=== PATIENT | female | born 1980 | race Caucasian/White ===

== ENCOUNTER 2017-06-27 21:51 | Emergency (ER) | payer MEDICAID, OTHER ==
--- NOTE | 2017-06-27 23:37 | ERNOTE ---
Integumentary HPI - General Presenting Symptoms: rash Time Seen by Provider: 06/27/17 23:17 Source: patient Exam Limitations: no limitations - Immun/Allergies/Home Medications Immunizations: IMMUNIZATION HX Immunizations Up to Date No History of Influenza Vaccine No Hx Pneumococcal Vaccination No Allergies/Adverse Reactions: Allergies Allergy/AdvReac Type Severity Reaction Status Date / Time cefaclor [From Ceclor] Allergy Verified 06/27/17 22:06 Home Medications: HOME MEDICATIONS Methylprednisolone [Medrol Dosepak] 4 mg PO DAILY #21 tab.ds.pk 06/28/17 [Last Taken Unknown] - History of Present Illness Narrative: pt had onset of rash 3 days ago mostly on abdomen but also minimally on hands and beginning to spread to legs Location: Reports: torso, hands Quality: Reports: itching, painful Severity: moderate Exposure: Reports: no cause identified Modifying Factors - (Improves): Denies: antihistamine Review of Systems - Review of Systems Constitutional: Absent: recent illness EYE: Present: no symptoms reported ENT: Present: no symptoms reported Respiratory: Absent: cough, wheezing Cardiology: Present: no symptoms reported Gastrointestinal/Abdominal: Absent: nausea, vomiting, diarrhea Genitourinary: Present: no symptoms reported Musculoskeletal: Absent: joint pain, joint swelling Skin: Present: See HPI Neurological: Present: no symptoms reported Endocrine: Absent: excessive sweating, flushing Hematologic/Lymphatic: Absent: easy bruising, easy bleeding Psych: Present: no symptoms reported - Patient's Past Medical History Patient History - Medical: No pertinent hx Patient History - Cardiac/Respiratory: No pertinent hx Patient History - Cancer: No Hx of Cancer Patient History - Surgical Procedures: Cholecystectomy, T & A, Orthopedic Patient History - Other: None LMP (females 10-50): 3 weeks - Social History Living Situations: home Abuse History: No History of abuse Psych History: No pertinent hx Smoking Status: Never smoker Have you smoked in the past 12 months: No Do you dip or chew tobacco: No Alcohol Use: none Drug Use: none - Immunizations Immunizations Up to Date: No Hx Pneumococcal Vaccination: No History of Influenza Vaccine: No Physical Exam - Physical Exam General Appearance: Present: wd/wn, alert, no apparent distress Head Exam: Present: normal inspection, no evidence of injury Respiratory: Present: no respiratory distress, no accessory muscle use Extremity Exam: Present: normal range of motion, no edema Neurological Exam: Present: alert, oriented, normal mood/affect, no motor/ sensory deficits Skin Exam: Present: other - small scattered erythematous papules on abdomen and a few on her dorsal hands and between a few fingers ED Progress - Vital Signs Vital Signs: Vital Signs 06/27/17 06/27/17 22:06 23:08 Temperature 36.6 C Pulse Rate 90 90 Respiratory 16 16 Rate Blood Pressure 138/94 109/74 O2 Sat by Pulse 98 97 Oximetry - Progress/Reassessment Chief Complaint: Rash Departure Clinical Impression: Contact dermatitis and eczema due to cause Qualifiers: Contact dermatitis type: unspecified Contact dermatitis trigger: unspecified trigger Qualified Code(s): L25.9 - Unspecified contact dermatitis, unspecified cause - Departure Disposition: Home self-care Condition: Good Instructions: Contact Dermatitis, [id number] Prescriptions: Methylprednisolone [Medrol Dosepak] 4 mg PO DAILY #21 tab.ds.pk
[2017-06-28 01:07] VITALS: BP 117/80
== END 2017-06-28 00:42 | disposition home or self-care (01) ==
LOC: ER 21:51
DX: L25.9 Unspecified contact dermatitis, unspecified cause (principal)

== ENCOUNTER 2017-08-09 22:23 | Emergency (ER) | payer OTHER ==
--- NOTE | 2017-08-09 23:33 | ERNOTE ---
Integumentary HPI - General Presenting Symptoms: rash Time Seen by Provider: 08/09/17 22:56 Source: patient Exam Limitations: no limitations - Immun/Allergies/Home Medications Immunizations: IMMUNIZATION HX Immunizations Up to Date Yes History of Influenza Vaccine No Hx Pneumococcal Vaccination No Allergies/Adverse Reactions: Allergies Allergy/AdvReac Type Severity Reaction Status Date / Time cefaclor [From [facility]] Allergy Verified 06/27/17 22:06 Home Medications: HOME MEDICATIONS Permethrin [Elimite 5% Cream] 1 appl TP ONCE #1 tube 08/09/17 [Last Taken Unknown] hydrOXYzine PAMOATE [Vistaril] 25 mg PO Q4H PRN 08/09/17 [Last Taken Unknown] - History of Present Illness Narrative: Pt was seen here 6 weeks ago with rash. She was given medrol dose pack which did not help. She saw her PCP who gave her hydroxyzine which she states does not help much. rash has spread over her trunk Location: Reports: generalized Quality: Reports: itching Severity: moderate, severe Exposure: Reports: no cause identified Modifying Factors - (Improves): Reports: nothing Review of Systems - Review of Systems Constitutional: Absent: recent illness EYE: Present: no symptoms reported ENT: Present: no symptoms reported Respiratory: Absent: shortness of breath Cardiology: Present: no symptoms reported Gastrointestinal/Abdominal: Present: no symptoms reported Skin: Present: See HPI Neurological: Absent: numbness, tingling - Patient's Past Medical History Patient History - Medical: No pertinent hx Patient History - Cardiac/Respiratory: Asthma Patient History - Cancer: No Hx of Cancer Patient History - Surgical Procedures: Cholecystectomy, T & A, Orthopedic Patient History - Other: None LMP (females 10-50): this week - Family History Mother Family History - Medical: Family History - Cancer: Cervical Father Family History - Medical: Diabetes Type 2 Insulin Dependent - Social History Living Situations: spouse Abuse History: No History of abuse Psych History: No pertinent hx Smoking Status: Never smoker Have you smoked in the past 12 months: No Do you dip or chew tobacco: No - Immunizations Immunizations Up to Date: Yes Hx Pneumococcal Vaccination: No History of Influenza Vaccine: No Physical Exam - Physical Exam General Appearance: Present: wd/wn, alert, mild distress Head Exam: Present: normal inspection, no evidence of injury Neck: Present: normal inspection, supple, full range of motion Respiratory: Present: no respiratory distress, no accessory muscle use Extremity Exam: Present: no edema Neurological Exam: Present: alert, oriented, normal mood/affect, no motor/ sensory deficits Skin Exam: Present: other - small papules and burrows on hands/between fingers, arms, abdomen, back and legs ED Progress - Vital Signs Vital Signs: Vital Signs 08/09/17 22:39 Temperature 36.3 C L Pulse Rate 89 Respiratory 20 Rate Blood Pressure 129/76 - Progress/Reassessment Chief Complaint: Rash Progress Note-Subjective: 08/10/17 03:01 Prescriptions given for other members of her household, for permethrin cream. Departure Clinical Impression: Scabies - Departure Disposition: Home self-care Condition: Good Instructions: Scabies, Adult Prescriptions: Permethrin [Elimite 5% Cream] 1 appl TP ONCE #1 tube
[2017-08-10 00:13] VITALS: BP 116/74
== END 2017-08-09 23:55 | disposition home or self-care (01) ==
LOC: ER 22:23
DX: B86 Scabies (principal)